=== PATIENT | female | born 1995 | race Caucasian/White ===

== ENCOUNTER 2018-08-22 08:32 | Emergency (ER) | payer OTHER ==
[~2018-08-22] VITALS: Ht 157.5 cm; Wt 57.2 kg
[2018-08-22 08:40] VITALS: BP 115/78; Ht 157.5 cm; Wt 57.2 kg
== END 2018-08-22 11:47 | disposition home or self-care (01) ==
LOC: ED 08:32
DX: M54.9 Dorsalgia, unspecified (principal); S16.1XXA Strain of muscle, fascia and tendon at neck level, initial encounter; S60.415A Abrasion of left ring finger, initial encounter; V48.5XXA Car driver injured in noncollision transport accident in traffic accident, initial encounter; Y93.I9 Activity, other involving external motion; Y92.411 Interstate highway as the place of occurrence of the external cause; Y99.8 Other external cause status
CPT/HCPCS: Q0092